=== PATIENT | male | born 1995 | race Caucasian/White ===

== ENCOUNTER 2018-11-02 11:09 | Emergency (ER) | payer SELFPAY ==
[~2018-11-02] VITALS: Ht 185.4 cm; Wt 75.0 kg
[2018-11-02] MEDS ORDERED: ASPIRIN 81 MG TABLET CHEW PO ONE (12:30)
[2018-11-02 12:37] LABS: BASOPHILS # (AUTO) 0.03 x10^3/uL (0-0.1); BASOPHILS % (AUTO) 1 % (0-1); EOSINOPHILS # (AUTO) 0.11 x10^3/uL (0-0.4); EOSINOPHILS % (AUTO) 2 % (1-7); LYMPHOCYTES # (AUTO) 1.16 x10^3/uL (1-3.4); LYMPHOCYTES % (AUTO) 23 % (22-44); MD NO; MEAN CORPUSCULAR HEMOGLOBIN 28.3 pg (27.5-34.5); MEAN CORPUSCULAR HGB CONC 33.3 g/dL (33.2-36.2); MEAN CORPUSCULAR VOLUME 84.9 fL (81-97); MEAN PLATELET VOLUME 8.4 fL (7.4-10.4); MONOCYTES # (AUTO) 0.31 x10^3/uL (0.2-0.8); MONOCYTES % (AUTO) 6 % (2-9); NEUTROPHILS # (AUTO) 3.52 x10^3/uL (1.8-6.8); NEUTROPHILS % (AUTO) 69 % (42-75); PLATELET COUNT 316 x10^3/uL (130-400); RED BLOOD COUNT 5.29 x10^6/uL (4.38-5.82); RED CELL DISTRIBUTION WIDTH 13.1 % (9.4-14.8)
[2018-11-02] MEDS ORDERED: ASPIRIN 81 MG TABLET CHEW ONE (12:40)
[2018-11-02 12:50] LABS: ALBUMIN 4.6 g/dL (3.4-5.0); ANION GAP 5 mmol/L (5-15); CALCIUM 9.2 mg/dL (8.5-10.1); CHLORIDE 107 mmol/L (98-107); CREATININE 0.85 mg/dL (0.7-1.3)
--- NOTE | 2018-11-02 12:50 | NUR ---
MARCO RN COVERING MEAL BREAK. REPORT FROM TOM RN, PT GIVEN ASA PER ERP ORDER. LABS AND XRAY COMPLETED. AWAITING CHEM PANEL RESULTS.
[2018-11-02 12:54] LABS: TROPONIN I < 0.015 ng/mL (0.000-0.045)
--- NOTE | 2018-11-02 13:52 | NUR ---
PT IS SITTING ON SIDE OF BED, TALKING WITH VISITOR. PT IS ALERT, ORIENTED, WITH NAD. PT DISCONNECTED HIM SELF FROM MONITOR. PT PLACED BACK ON MONITOR. CALL LIGHT WITHIN REACH.
[2018-11-02 13:53] VITALS: BP 117/66
--- NOTE | 2018-11-02 14:37 | NUR ---
Patient given discharge instructions and they have confirmed that they understand the instructions. Patient ambulatory with steady gait.
== END 2018-11-02 14:39 | disposition home or self-care (01) ==
LOC: ED 12:02
DX: R07.89 Other chest pain (principal)
CPT/HCPCS: 36415; 71045; 80048; 82040; 84484; 85025; 93005; 99284